=== PATIENT | male | born 1970 | race Caucasian/White ===

== ENCOUNTER 2019-10-23 09:54 | Emergency (ER) | payer OTHER ==
[2019-10-23 10:56] LABS: Absolute Lymphocytes (CBC) 0.9 K/uL (0.7-4.9); Basophils % 0.4 % (0-1.3); Lymphocytes % 16.1 % (15.3-44.8); MPV 8.2 fL (7.6-11.3); RBC Red Blood Cell Count 4.95 M/uL (4.33-5.43)
--- NOTE | 2019-10-23 11:29 | RAD REPORT ---
EXAM DESCRIPTION: CT - Chest For Pe Angio - 10/23/2019 11:16 am CLINICAL HISTORY: Chest pain. Dyspnea;Cough COMPARISON: No comparisons TECHNIQUE: CT angiogram of the pulmonary arteries was performed with MIP. All CT scans are performed using dose optimization technique as appropriate and may include automated exposure control or mA/KV adjustment according to patient size. FINDINGS: No evidence of pulmonary thromboembolism. No acute aortic finding demonstrated. Multiple areas of airspace opacity are present bilaterally, greatest in the lower lobes, most compati ble with multifocal pneumonia. No significant pericardial or pleural fluid. No concerning bony finding. IMPRESSION: No evidence of pulmonary thromboembolism. Multifocal pneumonia pattern is present, greatest in the lower lobes.
[2019-10-23] MEDS ORDERED: dexAMETHasone 10 MG/ML VIAL ONE (12:08)
--- NOTE | 2019-10-23 15:12 | EDPHYS ---
Physician Documentation [facility] Name: Brandon Duran Age: 49 yrs Sex: Male : 1970 Arrival Date: 10/23/2019 Time: 10:00 Bed 20 Private MD: Stormy Loco H ED Physician Farhat Sawant HPI: 10/22 10:32 This 49 yrs old Male presents to ER via Unassigned with complaints of Low O2. rn 10:32 The patient has shortness of breath at rest, with light activity. Onset: The rn symptoms/episode began/occurred 3 day(s) ago. Duration: The symptoms are continuous, and are unchanged since they started. The patient's shortness of breath is aggravated by exertion, light activity. Severity of symptoms: At their worst the symptoms were mild in the emergency department the symptoms are unchanged. The patient has not experienced similar symptoms in the past. Reports worried might have complication of COVID-19, is positive and recently diagnosed with multiple blood clots. patient has been symptomatic for 2 weeks atleast but worse over last 3 days, no chronic lung problems, no smoking, no chest pain. + non-productive cough. . Historical: - Allergies: 10:00 No Known Allergies; aa5 - Home Meds: 10:00 metoprolol [Active]; flecainide oral oral [Active]; aa5 - PMHx: 10:00 Hypertension; Irregular heart rate; aa5 - PSHx: 10:00 ablation; aa5 - Immunization history:: Adult Immunizations unknown. - Social history:: Smoking status: Patient denies any tobacco usage or history of. - Family history:: not pertinent. - Hospitalizations: : No recent hospitalization is reported. ROS: 10:32 Constitutional: Negative for fever, chills, and weight loss, Eyes: Negative for injury, rn pain, redness, and discharge, Cardiovascular: Negative for chest pain, palpitations, and edema, Respiratory: Negative for wheezing, and pleuritic chest pain, Abdomen/GI: Negative for abdominal pain, nausea, vomiting, diarrhea, and constipation, MS/Extremity: Negative for injury and deformity, Skin: Negative for injury, rash, and discoloration, Neuro: Negative for headache, weakness, numbness, tingling, and seizure. Exam: 10:32 Constitutional: This is a well developed, well nourished patient who is awake, alert, rn and in no acute distress. Ambulatory to room without difficulty or assistance. Appears well. Head/Face: Normocephalic, atraumatic. Cardiovascular: Regular rate and rhythm. No pulse deficits. Respiratory: Speaking full sentences. No increased work of breathing, no retractions or nasal flaring. Abdomen/GI: speaking full sentences, non labored. Skin: Warm, dry MS/ Extremity: Pulses equal, no cyanosis. Neurovascular intact. Full, normal range of motion. Equal circumference. Neuro: Awake and alert, GCS 15, oriented to person, place, time, and situation. Cranial nerves II-XII grossly intact. Motor strength 5/5 in all extremities. Sensory grossly intact. Cerebellar exam normal. Normal gait. Vital Signs: 10:00 BP 128 / 87; Pulse 80; Resp 18 S; Temp 100.1(O); Pulse Ox 97% on R/A; Weight 113.4 kg aa5 (R); Height 6 ft. 1 in. (185.42 cm) (R); Pain 0/10; 12:00 BP 130 / 82; Pulse 77; Resp 21; Pulse Ox 95% ; ah 13:00 BP 119 / 69; Pulse 75; Resp 14; Pulse Ox 94% ; ah 14:00 BP 129 / 91; Pulse 87; Resp 15; Pulse Ox 97% ; ah 10:00 Body Mass Index 32.98 (113.40 kg, 185.42 cm) aa5 MDM: 10:10 Patient medically screened. rn 12:50 ED course: Consulted with hospitalist service who spoke with Dr. Go, who does not rn believe patient needs admission, also states does not qualify for plasma given not hypoxic, and will see outpt with telemedicine. No PE on CT chest. Oxygen 92% at lowest with mask, but 97% with normal breathing. Stable vitals. Given decadron IV, will observe in ER, if doesn't worsen or become hypoxic will dc home. . 15:09 Differential diagnosis: pneumonia, COVID. 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 Counseling: I had a detailed discussion with the patient and/or guardian regarding: the historical points, exam findings, and any diagnostic results supporting the discharge/admit diagnosis, lab results, radiology results, the need for outpatient follow up, to return to the emergency department if symptoms worsen or persist or if there are any questions or concerns that arise at home. Response to treatment: the patient's symptoms have mildly improved after treatment, and as a result, I will discharge patient. ED course: Pt improved slightly, never dipped below 92%, Dr. Go does not recommend admission or plasma therapy, given steroids, will dc home with decadron and return precautions. . 10/22 10:25 Order name: CBC with Diff; Complete Time: 11:13 rn 10/22 10:25 Order name: Basic Metabolic Panel; Complete Time: 11:13 rn 10/22 10:25 Order name: CT Chest For PE Angio; Complete Time: 11:31 rn 10/22 11:38 Order name: CREATININE WHOLE BLOOD; Complete Time: 13:55 EDGA 10/22 10:25 Order name: IV Start; Complete Time: 10:52 rn Administered Medications: 12:24 Not Given (dosage changed): Decadron - Dexamethasone 10 mg IVP once 12:25 Drug: Decadron - Dexamethasone 6 mg Route: IVP; Site: right antecubital; 14:27 Follow up: Response: No adverse reaction Disposition: 10/23/19 15:11 Discharged to Home. Impression: Pneumonia, unspecified organism, Coronavirus infection, unspecified. - Condition is Stable. - Discharge Instructions: Community-Acquired Pneumonia, Adult, COVID-19. - Prescriptions for dexamethasone 6 mg Oral tablet - take 1 tablet by ORAL route once daily for 10 days; 10 tablet. - Medication Reconciliation Form, Thank You Letter, Antibiotic Education, Prescription Opioid Use form. - Follow up: Private Physician; When: As needed; Reason: Recheck today's complaints, Re-evaluation by your physician. - Problem is an ongoing problem. - Symptoms have improved. Signatures: Dispatcher [employer] EDMS Farhat Sawant MD MD rn Calderon, Audri RN DOM 5 Zoey Chen RN RN Corrections: (The following items were deleted from the chart) 16:06 15:11 10/23/2019 15:11 Discharged to Home. Impression: Pneumonia, unspecified organism; ah Coronavirus infection, unspecified. Condition is Stable. Forms are Medication Reconciliation Form, Thank You Letter, Antibiotic Education, Prescription Opioid Use. Follow up: Private Physician; When: As needed; Reason: Recheck today's complaints, Re-evaluation by your physician. Problem is an ongoing problem. Symptoms have improved. rn
--- NOTE | 2019-10-23 15:12 | ER ---
Nurse's Notes [facility] Name: Brandon Duran Age: 49 yrs Sex: Male : 1970 Arrival Date: 10/23/2019 Time: 10:00 Bed 20 Private MD: Stormy Loco H Diagnosis: Pneumonia, unspecified organism;Coronavirus infection, unspecified Presentation: 10/22 10:00 Chief complaint: Patient states: "my oxygen has been low about 90 to 93% and my ernesto has COVID and blood clots in her lungs". Pt states "I just been feeling ill for about 7-8 days". Pt reports cough, SOB. 10:00 Coronavirus screen: Patient reports a cough. Patient reports shortness of breath or aa5 difficulty breathing. Patient denies measured and/or subjective temperature greater than 100.4F prior to today's visit. Patient denies travel on a cruise ship or to a country the [facility] currently lists as an affected area. Patient reports contact with known and/or suspected case of COVID-19. Patient instructed to continue to wear a mask when interacting with others. Patient moved to private room, placed in contact and droplet isolation with eye protection until further assessment. Ebola Screen: Patient negative for fever greater than or equal to 101.5 degrees Fahrenheit, and additional compatible Ebola Virus Disease symptoms. Initial Sepsis Screen: Does the patient meet any 2 criteria? No. Patient's initial sepsis screen is negative. Does the patient have a suspected source of infection? No. Patient's initial sepsis screen is negative. Risk Assessment: Do you want to hurt yourself or someone else? Patient reports no desire to harm self or others. Onset of symptoms was October 2019. 10:00 Acuity: LEAH 3 aa5 10:00 Method Of Arrival: Ambulatory aa5 Historical: - Allergies: 10:00 No Known Allergies; aa5 - Home Meds: 10:00 metoprolol [Active]; flecainide oral oral [Active]; aa5 - PMHx: 10:00 Hypertension; Irregular heart rate; aa5 - PSHx: 10:00 ablation; aa5 - Immunization history:: Adult Immunizations unknown. - Social history:: Smoking status: Patient denies any tobacco usage or history of. - Family history:: not pertinent. - Hospitalizations: : No recent hospitalization is reported. Screenin:40 Abuse screen: Denies threats or abuse. Nutritional screening: No deficits noted. ah Tuberculosis screening: No symptoms or risk factors identified. Fall Risk None identified. Assessment: 10:15 General: Appears in no apparent distress. Behavior is calm, cooperative, appropriate ah for age. Pain: Denies pain. Neuro: Level of Consciousness is awake, alert, obeys commands, Oriented to person, place, time, situation, Appropriate for age. Cardiovascular: Heart tones S1 S2 present Pulses are palpable in right radial artery and left radial artery. Respiratory: Reports cough that is productive, since 1 week decreased oxygen level while moving around Airway is patent Respiratory effort is even, unlabored, Respiratory pattern is regular, symmetrical. GI: Derm: Skin is intact, is healthy with good turgor, Skin is dry. Musculoskeletal: Circulation, motion, and sensation intact. Capillary refill < 3 seconds. 13:42 Reassessment: Pt lying in bed with resp even and unlabored. No distress noted. No ah adverse reactions noted at this time. 14:29 Reassessment: Patient and/or family updated on plan of care and expected duration. Pain ah level reassessed. Pt awake with no complaints at this time. 15:30 Reassessment: Discharge instructions given to Pt and educated on prescription. Pt ah voiced understanding. Instructed to Quarantine remainer of illness. Vital Signs: 10:00 BP 128 / 87; Pulse 80; Resp 18 S; Temp 100.1(O); Pulse Ox 97% on R/A; Weight 113.4 kg aa5 (R); Height 6 ft. 1 in. (185.42 cm) (R); Pain 0/10; 12:00 BP 130 / 82; Pulse 77; Resp 21; Pulse Ox 95% ; ah 13:00 BP 119 / 69; Pulse 75; Resp 14; Pulse Ox 94% ; ah 14:00 BP 129 / 91; Pulse 87; Resp 15; Pulse Ox 97% ; ah 10:00 Body Mass Index 32.98 (113.40 kg, 185.42 cm) aa5 ED Course: 10:00 Patient arrived in ED. mr 10:00 Arm band placed on Patient placed in an exam room, on a stretcher. aa5 10:02 Loco, Shiloh-Jason, DO is Private Physician. mr 10:10 Farhat Sawant MD is Attending Physician. rn 10:11 Zoey Chen, RN is Primary Nurse. 10:30 Inserted saline lock: 20 gauge in right antecubital area, using aseptic technique. 10:38 Triage completed. aa 11:16 CT Chest For PE Angio In Process Unspecified. EDLA 14:29 Patient has correct armband on for positive identification. Placed in gown. Bed in low ah position. Call light in reach. Side rails up X 1. school lunch monitor on. Pulse ox on. NIBP on. 15:25 IV discontinued, intact, bleeding controlled, No redness/swelling at site. Pressure ah dressing applied. 15:30 No provider procedures requiring assistance completed. Administered Medications: 12:24 Not Given (dosage changed): Decadron - Dexamethasone 10 mg IVP once 12:25 Drug: Decadron - Dexamethasone 6 mg Route: IVP; Site: right antecubital; 14:27 Follow up: Response: No adverse reaction Outcome: 15:11 Discharge ordered by MD. rn 15:30 Discharged to home ambulatory. 15:30 Condition: good 15:30 Discharge instructions given to patient, Instructed on discharge instructions, follow up and referral plans. Demonstrated understanding of instructions, follow-up care, medications, Prescriptions given X 1. 16:06 Patient left the ED. Signatures: Dispatcher [employer] [facility] Genaro Carmelita mr Farhat Sawant MD MD rn Calderon, Audri, RN RN [facility] Zoey Chen, RN RN
[2019-10-23 22:14] VITALS: TEMP 100.1
[2019-10-23 22:18] VITALS: BP 129/91; O2SAT 97
== END 2019-10-23 16:06 | disposition home or self-care (01) ==
LOC: ER 09:54
DX: U07.1 COVID-19 (principal); J12.89 Other viral pneumonia; I10 Essential (primary) hypertension
CPT/HCPCS: 85025; 80048; 36415; 82565; 71275; 96374; 99284; Q9967; J1100